=== PATIENT | male | born 1965 | race Caucasian/White ===

== ENCOUNTER 2025-09-30 10:38 | Emergency (ER) | payer OTHER, SELFPAY ==
[2025-09-30 10:43] VITALS: BP 194/91; PULSE 100; TEMP 36.6; O2SAT 96; BMI 19.9
[2025-09-30] MEDS: METHYLPREDNISOLONE SOD SUCC PF 40 MG/ML VIAL IM (11:18)
[2025-09-30] MEDS: KETOROLAC TROMETHAMINE 30 MG/ML VIAL IM (11:20)
[2025-09-30] MEDS: TRAMADOL HCL 50 MG TABLET PO (11:21)
--- NOTE | 2025-09-30 11:55 | ED_ITS ---
HPI HPI - Back Pain/Injury General Chief Complaint: Back Pain/Injury Stated Complaint: BACK PAIN Time Seen by Provider: 09/30/25 10:51 Source: patient Mode of arrival: walk-in History of Present Illness HPI Narrative: The patient have a history of chronic back issues after he had a water injury to his back, he mentioned that he have a broken back with multiple surgeries done before, the patient presented to us with a lower back pain that is not radiating to the lower extremity that just got exacerbated over the last few days, the patient mentioned that sometimes during the cold he will have exacerbation of h is pain he have no weakness numbness or tingling, pain is mostly limited to movement and he does not remember falling or doing any exertion that would cause the pain Patient is only taking Tylenol for pain Related Data Previous Rx's ?Medication ?Instructions ?Recorded diclofenac sodium 75 mg 75 mg PO BID PRN pain #20 ta bs 09/30/25 tablet,delayed release orphenadrine citrate 100 mg 100 mg PO BID PRN muscle s pasm #20 09/30/25 tablet,extended release tabs Allergies Allergy/AdvReac Type Severity Reaction Status Date / Time No Known Drug Allergies Allergy Verified 09/30/25 10:43 Opioid HPI Opioid Management Most Recent Opioid Data: Last Pain Scale 10 Today, 11:21 Last MAR Pain Assessment Today, 11:21 Review of Systems ROS Status of ROS 10 or more systems reviewed and unremark able except as noted in history and below PFSH PFSH Social History Little interest or pleasure in doing things: not at all Feeling down, depressed, or hopeless: not at all Exam Narrative Exam Narrative: Nurses notes and vital signs reviewed and patient is not hypoxic. General: Well-appearing and in no apparent distress. Skin: Warm, dry, no pallor noted. No rash. Head: Normocephalic, atraumatic. Neck: Supple, non-tender. Cardiovascular: Normal heart sounds with no murmur Respiratory: No accessory muscle use or respiratory distress. Lungs are clear to auscultation, no wheezing, rales or rhonchi Back: No midline thoracic or lumbar vertebral tenderness. Patient have a paraspinal muscle tenderness mostly in the upper lumbar level and it is obvious that they have deformities of previous injury Musculoskeletal: normal ROM, no calf or popliteal tenderness, no lower extremity edema/swelling GI: Abdomen is soft, non-distended. Normal bowel sounds. No masses appreciated. No tenderness to palpation. No rebound, guarding, or rigidity noted. Neurological: A&O x4. No cranial nerve dysfunction observed. No truncal ataxia. Moves all extremities. Sensation intact. Psychiatric: Cooperative and interactive. Normal mood and affect. Constitutional Vital Signs, click to edit/add: Last Vital Signs Temp 97.8 F 09/30/25 10:43 Pulse 100 H 09/30/25 10:43 Resp 18 09/30/25 10:43 BP 194/91 H 09/30/25 10:43 Pulse Ox 96 09/30/25 10:43 O2 Del Method Room Air 09/30/25 10:43 Course Vital Signs Vital signs: Vital Signs Temperature 97.8 F 09/30/25 10:43 Pulse Rate 100 H 09/30/25 10:43 Respiratory Rate 18 09/30/25 10:43 Blood Pressure 194/91 H 09/30/25 10:43 Pulse Oximetry 96 09/30/25 10:43 Oxygen Delivery Method Room Air 09/30/25 10:43 Temperature 97.8 F 09/30/25 10:43 Pulse Rate 100 H 09/30/25 10:43 Respiratory Rate 18 09/30/25 10:43 Blood Pressure 194/91 H 09/30/25 10:43 Pulse Oximetry 96 09/30/25 10:43 Oxygen Delivery Method Room Air 09/30/25 10:43 MDM - Back Pain/Injury MDM Narrative Medical decision making narrative: The patient presented to us with back pain with no alarming symptoms right now after being initially treated with Toradol and Solu-Medrol in addition to 1 dose of tramadol the patient was feeling much better He was discharged home with Norflex as well as Voltaren with instruction to come back to the ER in case of any alarming symptoms The patient to follow-up with the primary care within 2 to 3 days and to come back to the ER in case of any worsening of the current symptoms or any new symptoms or concerns Discharge Plan Discharge Chief Complaint: Back Pain/Injury Clinical Impression: Strain of lumbar region Patient Disposition: Home, Self-Care Time of Disposition Decision: 11:55 Condition: Good Prescriptions / Home Meds: New diclofenac sodium 75 mg tablet,delayed release (DR/EC) 75 mg PO BID PRN (Reason: pain) Qty: 20 0RF orphenadrine citrate 100 mg tablet extended release 100 mg PO BID PRN (Reason: muscle spasm) Qty: 20 0RF Print Language: Romanian Instructions: Back Pain (ED) Referrals: Physician,Non-Staff, MD [Primary Care Provider] - 1 week Discharge Date/Time: 09/30/25 12:17
== END 2025-09-30 12:17 | disposition home or self-care (01) ==
PROVIDERS: Emergency Provider Emergency Medicine
DX: S39.012A Strain of muscle, fascia and tendon of lower back, initial encounter (principal); X58.XXXA Exposure to other specified factors, initial encounter
CPT/HCPCS: 96372; 99284; J1885; J2919